=== PATIENT | male | born 1975 | race Caucasian/White ===

== ENCOUNTER → 2016-11-03 | Day surgery (SDC) | payer OTHER ==
[~2016-11-03] VITALS: Ht 185.4 cm; Wt 79.8 kg
== END | disposition home or self-care (01) ==
LOC: FAS 10-22 09:00
DX: L72.0 Epidermal cyst (principal); M79.9 Soft tissue disorder, unspecified; I10 Essential (primary) hypertension; R06.02 Shortness of breath; F17.200 Nicotine dependence, unspecified, uncomplicated; F17.210 Nicotine dependence, cigarettes, uncomplicated; Z87.01 Personal history of pneumonia (recurrent)
CPT/HCPCS: 71010; 88304; J0690; J1100; J2405; J2704; J3010